=== PATIENT | female | born 1965 | race Caucasian/White ===

== ENCOUNTER 2016-11-27 05:25 | Day surgery (SDC) | payer OTHER ==
[~2016-11-27] VITALS: Ht 167.6 cm; Wt 122.3 kg
[2016-11-27] MEDS ORDERED: OMEPRAZOLE20 M1 PO (06:18)
[2016-11-27] MEDS ORDERED: PRINIVIL20 MG PO (06:18)
[2016-11-27] MEDS ORDERED: BAYER CHEWABLE81 MG PO (06:19)
[2016-11-27] MEDS ORDERED: PLAVIX75 MG PO (06:19)
[2016-11-27] MEDS ORDERED: CO Q-10100 MG PO (06:20)
[2016-11-27] MEDS ORDERED: FISH OIL 1,0001 CA1 PO (06:20)
[2016-11-27] MEDS ORDERED: COREG6.25 MG (06:21)
[2016-11-27] MEDS ORDERED: GLUCOPHAGE500 MG PO (06:21)
[2016-11-27] MEDS ORDERED: ALDACTONE25 MG PO (06:22)
[2016-11-27] MEDS ORDERED: LIPITOR20 MG PO (06:23)
[2016-11-27] MEDS ORDERED: VITAMIN D5000 UNIT PO (06:24)
[2016-11-27] MEDS ORDERED: CINNAMON500 MG PO (06:24)
[2016-11-27 06:37] VITALS: BP 146/91; Ht 167.6 cm; Wt 122.3 kg
[2016-11-27 06:47] LABS: BASOPHILS 0.1 % (0.0-2.0); EOSINOPHILS 2.7 % (0-7); HEMATOCRIT 37.9 % (36.0-48.0); HEMOGLOBIN 12.9 g/dL (12-16); IMMATURE GRANULOCYTES 0.3 % (0-5); LYMPHOCYTES 30.2 % (15-50); MCH 30.7 pg (26.0-34.0); MCV 90.2 fL (80.0-100.0); MEAN PLATELET VOLUME 10.4 fL (7.4-10.4); NEUTROPHILS 60.7 % (40-80); PLATELET COUNT 239 10x3/uL (130-400); RDW 12.9 % (11.5-14.5); WBC 9.4 10x3/uL (4.8-10.8)
[2016-11-27 07:02] LABS: ANION GAP 13.2 mmol/L (8-16); CALCIUM 9.1 mg/dL (8.5-10.1); CARBON DIOXIDE 25.7 mmol/L (21.0-32.0); POTASSIUM - SERUM 3.9 mmol/L (3.5-5.1)
--- NOTE | 2016-12-05 12:04 | OP ---
PATIENT NAME: DAISY MARTIN MEDICAL RECORD: [id number] :65 LOCATION:D.OPS ADMISSION DATE: SURGEON: MASOOD CARIAS DO DATE OF OPERATION: 11/27/2016 PROCEDURE: EGD with biopsies. ENDOSCOPIST: Masood Carias DO. SCOPE: Olympus video gastroscope. MEDICATIONS: Propofol 210 mg and lidocaine 100 mg per anesthesia. INDICATIONS FOR PROCEDURE: Epigastric abdominal pain, nausea and vomiting, abnormal weight loss and diarrhea, which is currently resolved. FINDINGS: Informed consent was given. The patient was made comfortable with the above medications. After reaching an adequate level of sedation by slow IV push, the patient was placed in the left side. The endoscope was then advanced under direct visualization through the mouth to the second portion of the duodenum. The esophageal mucosa appeared normal throughout its entirety. The GE junction showed ____ Z line without breaks in the mucosa. The scope was advanced into the stomach and retroflexed to view the cardia. There was no evidence of a hiatal hernia. The fundus revealed normal mucosa. Scope was advanced through the body of the stomach down to the antrum where there was some streaky erythema in the antrum and prepyloric region consistent with possible gastritis. Random biopsies were taken and sent for histology. There were a few benign fundic gland polyps noted in the body and fundus of the stomach. Scope was advanced down into the bulb and second portion of the duodenum where the mucosa appeared normal. Scope was withdrawn from the patient. The patient tolerated the procedure well and there were no complications. ESTIMATED BLOOD LOSS: Minimal. IMPRESSION: 1. Benign fundic gland gastric polyps. 2. Possible gastritis in the antrum and prepyloric region. Biopsies taken with cold forceps. PLAN AND RECOMMENDATIONS: 1. Continue current medications. 2. Continue current diet. 3. 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 We can follow up after these procedures are performed to see where her symptoms are at. If she is continuing to have nausea and abdominal pain, I would consider a gastric emptying study regarding her history of diabetes and her symptoms. TRANSINT:[id number] Voice Confirmation ID: [id number] DOCUMENT ID: [id number] OPERATIVE REPORT [id number] DAISY MARTIN MASOOD CARIAS DO at 1204 CC: [id number] DICTATION DATE: 11/27/16 0752 FINISH CLEANER: 11/27/16 1058 [facility] 11/27/16 [facility] [address] [place] [address]
== END 2016-11-27 08:50 | disposition home or self-care (01) ==
LOC: D.OPS 05:25
PROVIDERS: Anesthesiology
DX: K31.7 Polyp of stomach and duodenum (principal); R19.7 Diarrhea, unspecified; R63.4 Abnormal weight loss; E11.9 Type 2 diabetes mellitus without complications; D35.00 Benign neoplasm of unspecified adrenal gland

== ENCOUNTER → 2017-06-25 09:55 | Outpatient (CLI) | payer OTHER ==
[2016-11-27 06:37] VITALS: BMI 43.5
[~2017-06-25 09:55] MED LIST: ALDACTONE25 MG PO; BAYER CHEWABLE81 MG PO; CINNAMON500 MG PO; CO Q-10100 MG PO; COREG6.25 MG PO; FISH OIL 1,0001 CA1 PO; GLUCOPHAGE500 MG PO; LIPITOR20 MG PO; OMEPRAZOLE20 M1 PO; PLAVIX75 MG PO; PRINIVIL20 MG PO; VITAMIN D5000 UNIT PO
[2017-06-25 10:40] LABS: BILIRUBIN - DIRECT 0.09 mg/dL (0.00-0.30); BILIRUBIN - INDIRECT 0.31 mg/dL (0.00-1.00); BILIRUBIN - TOTAL 0.4 mg/dL (0.2-1.3); PROTEIN - SERUM 7.8 g/dL (6.4-8.2)
== END | disposition home or self-care (01) ==
LOC: D.LAB 09:55 → D.NM 10:30 → D.US 10:30
PROVIDERS: Internal Medicine Gastroenterology
DX: R10.13 Epigastric pain (principal); R11.2 Nausea with vomiting, unspecified; R74.8 Abnormal levels of other serum enzymes

== ENCOUNTER 2017-07-11 11:23 | Day surgery (SDC) | payer OTHER ==
[2017-07-11 12:12] LABS: HEMATOCRIT 38.6 % (36.0-48.0); HEMOGLOBIN 13.2 g/dL (12-16); MCH 30.9 pg (26.0-34.0); MCHC 34.2 g/dL (31.0-37.0); MCV 90.4 fL (80.0-100.0); RBC 4.27 10x6/uL (4.00-5.40); RDW 12.6 % (11.5-14.5); WBC 6.8 10x3/uL (4.8-10.8)
[2017-07-11 12:23] LABS: ANION GAP 14.9 mmol/L (8-16); CALCIUM 10.2 mg/dL (8.5-10.1); CARBON DIOXIDE 26.4 mmol/L (21.0-32.0); POTASSIUM - SERUM 4.3 mmol/L (3.5-5.1)
[2017-07-11 12:24] VITALS: BP 146/72; BMI 44.6
[2017-07-11 12:35] LABS: APTT 26.9 SECONDS (22.8-39.4); INR 1.05 (0.85-1.17); PROTIME 13.5 SECONDS (11.6-15.0)
--- NOTE | 2017-07-11 15:16 | NUR ---
1515 DISCHARGE INSTRUCTIONS COMPLETE. PT HAS NO QUESTIONS OR CONCERNS AT THIS TIME. ESCORTED OUT BY VOLUNTEER.
--- NOTE | 2017-07-26 07:24 | OP ---
PATIENT NAME: DAISY MARTIN MEDICAL RECORD: [id number] :65 LOCATION:D.OPS ADMISSION DATE: SURGEON: MASOOD CARIAS DO DATE OF OPERATION: 07/11/2017 PROCEDURE: Colonoscopy with polypectomy and random biopsies. INDICATION FOR PROCEDURE: Family history positive for colon cancer in her brother. SCOPE: Olympus video pediatric colonoscope. MEDICATIONS: Propofol 375mg IV per anesthesia. WITHDRAWAL TIME: 10 minutes. ESTIMATED BLOOD LOSS: Minimal. COMPLICATIONS: None. FINDINGS: Informed consent was given. The patient was made comfortable with the above medication. After reaching an adequate level of sedation by slow IV push, the patient was placed on her left side. A digital rectal examination was performed and revealed external hemorrhoids without bleeding. The endoscope was then advanced under direct visualization through the rectum to the terminal ileum. The endoscope was slowly withdrawn and mucosa was carefully examined. The prep quality was excellent. Retroflexion was performed in the rectum. There were 2 polyps visualized on today's examination. They were both located in the rectum. One was a benign appearing sessile polyp measuring approximately 6 mm in diameter. It was removed using hot snare in 1 piece and completely retrieved. The second polyp was a smaller polyp which was flat and appeared more consistent with a serrated adenomatous polyp. It measured approximately 3 to 4 mm in diameter. It was removed using hot snare in 1 piece and completely retrieved. Upon retroflexion, the rectal wall appeared normal. There were no diverticula or other abnormalities visualized on today examination. The endoscope was withdrawn from the patient. The patient tolerated the procedure well and there were no complications. IMPRESSION: 1. Two rectal polyps as described above, removed using hot snare. 2. External hemorrhoids without bleeding stigmata. 3. Random colon biopsies were taken to rule out microscopic colitis. PLAN AND RECOMMENDATIONS: 1. Discharge home when recovery parameters are met. 2. Follow up biopsy specimen results. 3. Anticipate a recall colonoscopy in 3 years, pending results of polyps removed. 4. High fiber diet. 5. Continue current medications. TRANSINT:[id number] Voice Confirmation ID: [id number] DOCUMENT ID: [id number] OPERATIVE REPORT [id number] DAISY MARTIN MASOOD CARIAS DO at 0724 CC: [id number] DICTATION DATE: 07/11/17 1431 SUPERVISOR SAWING AND ASSEMBLY: 07/11/17 1558 [facility] 07/11/17 [place] [address] [place] [address]
== END 2017-07-11 15:15 | disposition home or self-care (01) ==
LOC: D.OPS 11:23
PROVIDERS: Internal Medicine Gastroenterology
DX: K62.1 Rectal polyp (principal); K64.4 Residual hemorrhoidal skin tags; Z80.0 Family history of malignant neoplasm of digestive organs; Z01.812 Encounter for preprocedural laboratory examination

== ENCOUNTER → 2017-08-14 12:45 | Outpatient (CLI) | payer OTHER ==
[2017-08-14 14:05] LABS: BASOPHILS 0.1 % (0-2); EOSINOPHILS 3.2 % (0-7); HEMATOCRIT 36.5 % (36.0-48.0); HEMOGLOBIN 12.2 g/dL (12-16); IMMATURE GRANULOCYTES 0.4 % (0-5); LYMPHOCYTES 34.1 % (15-50); MCH 30.3 pg (26.0-34.0); MCHC 33.4 g/dL (31.0-37.0); MCV 90.6 fL (80.0-100.0); MEAN PLATELET VOLUME 10.9 fL (7.4-10.4); NEUTROPHILS 57.2 % (40-80); PLATELET COUNT 230 10x3/uL (130-400); RBC 4.03 10x6/uL (4.00-5.40); RDW 12.1 % (11.5-14.5); WBC 7.2 10x3/uL (4.8-10.8)
[2017-08-14 14:21] LABS: % SATURATION 23 % (15-55); IRON 77 ug/dl (35-150); TOTAL IRON BIND CAPACITY 326 ug/dl (260-445); UNSAT IRON BIND CAPACITY 249 ug/dl (150-375)
[2017-08-14 14:30] LABS: APTT 28.9 SECONDS (22.8-39.4); INR 1.03 (0.85-1.17); PROTIME 13.1 SECONDS (11.6-15.0)
[2017-08-14 14:33] LABS: ALBUMIN 3.9 g/dL (3.4-5.0); BILIRUBIN - DIRECT 0.1 mg/dL (0.00-0.30); BILIRUBIN - INDIRECT 0.26 mg/dL (0.00-1.00); BILIRUBIN - TOTAL 0.36 mg/dL (0.2-1.3); CALCIUM 9.7 mg/dL (8.5-10.1); CARBON DIOXIDE 25.1 mmol/L (21.0-32.0); POTASSIUM - SERUM 5.1 mmol/L (3.5-5.1); PROTEIN - SERUM 7.7 g/dL (6.4-8.2)
[2017-08-15 09:16] LABS: FOLATE (FOLIC ACID) - SERUM 13.7 ng/mL (>3.0); HAPTOGLOBIN 260 mg/dL (34-200)
[2017-08-15 10:18] LABS: ALPHA FETOPROTEIN -(TUMOR MRK) 1.3 ng/mL (0.0-8.3); ANA REFLEX - DIRECT Negative (Negative)
[2017-08-16 14:22] LABS: MITOCHONDRIAL ANTIBODY 10.5 Units (0.0-20.0); SMOOTH MUSCLE ABS (ACTIN) 9 Units (0-19)
== END | disposition home or self-care (01) ==
LOC: D.LAB 12:45
PROVIDERS: Internal Medicine Gastroenterology
DX: K76.0 Fatty (change of) liver, not elsewhere classified (principal); R74.8 Abnormal levels of other serum enzymes

== ENCOUNTER 2018-01-30 10:32 | Day surgery (SDC) | payer OTHER ==
[~2018-01-30] VITALS: Ht 167.6 cm; Wt 122.7 kg
--- NOTE | ~2018-01-30 | OP ---
PATIENT NAME: DAISY MARTIN MEDICAL RECORD: [id number] :65 LOCATION:DJOSE ADMISSION DATE: SURGEON: MASOOD CARIAS DO DATE OF OPERATION: 01/30/2018 PROCEDURE: EGD with biopsies. INDICATIONS FOR PROCEDURE: Epigastric pain, nausea and vomiting. SCOPE: Olympus video gastroscope. MEDICATIONS: Propofol 100 mg IV per anesthesia. ESTIMATED BLOOD LOSS: Minimal. COMPLICATIONS: None. FINDINGS: Informed consent was given. The patient was made comfortable with the above medication. After reaching an adequate level of sedation by slow IV push, the patient was placed on her left side. The endoscope was advanced under direct visualization through the mouth to the second portion of the duodenum. The upper, middle, and lower thirds of the esophagus appeared normal. Random cold forceps biopsies were taken in the mid esophagus to rule out eosinophilic esophagitis based on her complaints of dysphagia. At the GE junction, there was mild evidence of LA class A reflux-induced esophagitis. The endoscope was advanced beyond the GE junction into the stomach and retroflexed to view the cardia, which appeared normal. Within the stomach, there were patchy areas of erythema and granularity and possible very superficial ulcerations present. Findings are consistent with mild gastritis. Random biopsies were taken to submit for histology and to rule out the presence of H. pylori. The endoscope was advanced beyond the pylorus into the duodenum where the entire examined duodenum appeared normal. Cold forceps biopsies were taken from the second portion of the duodenum as well as the bulb to submit for histopathology. The endoscope was withdrawn from the patient. The patient tolerated the procedure well and there were no complications. IMPRESSION: 1. LA class A reflux-induced esophagitis. 2. Gastritis. PLAN AND RECOMMENDATIONS: 1. Discharge home when recovery parameters are met. 2. Follow up biopsy specimen results. 3. Increase omeprazole to 40 mg every a.m. times 30 days and then reduce back to 40 mg daily. 4. Recommend a trial of Reglan 5 mg p.o. a.c. and h.s. The patient has declined this in the past due to possible side effects of tardive dyskinesia, but she has had a gastric emptying scan in the past, which suggests mild delayed gastric emptying. Her symptoms are consistent with gastroparesis and this medication could be beneficial for her. 5. Continue gastroparesis diet of small more frequent meals, which are low in fiber and fatty substances. TRANSINT:[id number] Voice Confirmation ID: [id number] DOCUMENT ID: [id number] OPERATIVE REPORT [id number] DAISY MARTIN NATHAN A DO at 1558 CC: [id number] DICTATION DATE: 01/30/18 1243 EMAIL MARKETING COORDINATOR: 01/30/[address] [facility] 01/30/18 [place] [id number] [place] [address]
[2018-01-30 11:27] LABS: BASOPHILS 0.3 % (0-2); EOSINOPHILS 2.7 % (0-7); HEMATOCRIT 33.5 % (36.0-48.0); HEMOGLOBIN 11.5 g/dL (12-16); IMMATURE GRANULOCYTES 0.4 % (0-5); LYMPHOCYTES 31.5 % (15-50); MCH 30.9 pg (26.0-34.0); MCHC 34.3 g/dL (31.0-37.0); MCV 90.1 fL (80.0-100.0); MEAN PLATELET VOLUME 10.1 fL (7.4-10.4); MONOCYTES 7.9 % (2-11); NEUTROPHILS 57.2 % (40-80); PLATELET COUNT 276 10x3/uL (130-400); RBC 3.72 10x6/uL (4.00-5.40); RDW 12.9 % (11.5-14.5); WBC 7.5 10x3/uL (4.8-10.8)
[2018-01-30 11:32] LABS: ANION GAP 16.1 mmol/L (8-16); CALCIUM 9.6 mg/dL (8.5-10.1); CARBON DIOXIDE 23.9 mmol/L (21.0-32.0); CREATININE - SERUM 1.5 mg/dL (0.6-1.3)
[2018-01-30 11:44] VITALS: BP 136/69; Ht 167.6 cm; Wt 122.7 kg
== END 2018-01-30 13:30 | disposition home or self-care (01) ==
LOC: D.OPS 10:32
PROVIDERS: Anesthesiology
DX: K21.0 Gastro-esophageal reflux disease with esophagitis (principal); K29.50 Unspecified chronic gastritis without bleeding; Z01.812 Encounter for preprocedural laboratory examination

== ENCOUNTER → 2018-03-01 17:50 | Outpatient (CLI) | payer OTHER ==
[2018-01-30 11:44] VITALS: BMI 43.6
== END | disposition home or self-care (01) ==
LOC: D.LABREF 17:50
DX: J01.00 Acute maxillary sinusitis, unspecified (principal)

== ENCOUNTER 2018-08-05 06:56 | Day surgery (SDC) | payer OTHER ==
[~2018-08-05] VITALS: Ht 165.1 cm; Wt 115.7 kg
--- NOTE | ~2018-08-05 | HP ---
PATIENT: ANTOINETTE MARTIN MEDICAL RECORD: [id number] ACCOUNT: [id number] LOCATION:MARÍA : 65 ADMISSION DATE: 08/05/18 PCP: AMARILIS ARREOLA HISTORY AND PHYSICAL EXAMINATION HISTORY: Antoinette is 53. She has had chronic problems with sinusitis. She has been admitted for right middle meatal antrostomy, ethmoidectomy, and turbinate reduction. PAST MEDICAL HISTORY: Includes diabetes, hypertension, reactive airway disease, and liver disease. PAST SURGICAL HISTORY: Includes hysterectomy, hernia repair, and renal tumor. CURRENT MEDICATIONS: Include carvedilol, metformin, Reglan, biotin, glimepiride, lisinopril, Prilosec, spironolactone, Plavix has been held, aspirin has been held, and Singulair. ALLERGIES: VICTOZA AND BYDUREON. PHYSICAL EXAMINATION: GENERAL: She is healthy appearing. FACE: Normal and symmetric. No lesions. EYES: Sclerae and conjunctivae are normal. EARS: Canals and TMs are normal. NOSE: Purulent drainage from right middle meatus. Large inferior turbinates. No masses or polyps. ORAL CAVITY AND OROPHARYNX: Palate is normal. No trismus. She has a bad right maxillary molar. NECK: No masses. CHEST: Clear. CARDIOVASCULAR: Regular rate and rhythm. No murmur. EXTREMITIES: Normal. IMPRESSION: Chronic right-sided sinusitis, I think due to dental infection. PLAN: Right middle meatal antrostomy, right anterior ethmoidectomy, bilateral inferior turbinate reduction, possible dental extraction. TRANSINT:[id number] Voice Confirmation ID: [id number] DOCUMENT ID: [id number] BETI LAINEZ MD at 1817 CC: [id number] DICTATION DATE: 07/31/18 1339 DEER FARMER: 07/31/18 1438 [facility] 08/05/18 [place] [id number]
--- NOTE | ~2018-08-05 | OP ---
PATIENT NAME: DAISY MARTIN MEDICAL RECORD: [id number] :65 LOCATION:MARÍA ADMISSION DATE: SURGEON: BETI KIM MD DATE OF OPERATION: 08/05/2018 PREOPERATIVE DIAGNOSES: Chronic right sinusitis, nasal obstruction, and turbinate hypertrophy. POSTOPERATIVE DIAGNOSES: Chronic right sinusitis, nasal obstruction, and turbinate hypertrophy. PROCEDURES: Right middle meatal antrostomy, right ethmoidectomy, right frontal sinusotomy, and bilateral inferior turbinate reduction. SURGEON: Beti Kim MD ANESTHESIA: General orotracheal. BLOOD LOSS: 15 cc. SPECIMENS: Cultures from right maxillary sinus and some tissue from right middle meatus. NASAL PACKING: None. COMPLICATIONS: None. DISPOSITION: Recovery, stable. DESCRIPTION OF PROCEDURE: She was brought to the operating room, placed in the supine position, sedated and intubated by anesthesia. She was positioned. Her nose was examined. She had been decongested with Afrin preoperatively. On the right side, the uncinate, middle turbinate, and inferior turbinate were injected with less than 1 cc of 1% lidocaine with 1:100,000 epinephrine. Two Afrin pledgets were placed in each side of the nose. She was positioned, prepped, and draped in the usual sterile fashion. Then, the pledgets were removed. The left side was addressed first. The inferior turbinate redundant inferior portion was taken down with a Gruenwald. Suction cautery was used to stop any bleeding. It was outfractured with a Milton elevator. The nose was examined carefully with a 0-degree scope. The middle meatus, middle turbinate, nasal vault, and nasopharynx were normal. She did have some septal deviation, but no masses or lesions were noted. On the right side, the pledgets were removed. The inferior turbinate was little bit large. The middle meatus had copious purulence. The sphenoid ostia, posterior nasal vault, and superior meatus were clear with no drainage. Gruenwald was used to take down the inferior redundant portion. The suction cautery was used to stop any bleeding. It was outfractured with a Milton elevator. The middle turbinate was medialized slightly. There was copious purulence. Cultures were obtained. There were granular changes to the ethmoid bulla. The uncinate was fractured anteriorly. Microdebrider was used to take down some of the redundant polypoid and inflamed granulation tissue. Some of this was taken down with a backbiter and a straight grabber and sent for pathology. Large curved olive tip suction was inserted into the maxillary sinus and a Guadalupe trap was used to capture at least a couple cc of purulence and that was sent as specimen as well. The ethmoid bulla was entered inferomedially with microdebrider and the ethmoid cavity was taken down starting anteriorly and OPERATIVE REPORT [id number] DAISY MARTIN working posteriorly. Several of the air cells were full of purulence. With that evacuated, then a curved small olive tip suction was inserted into the frontal sinus easily all the way up. Some purulence was suctioned and then it was irrigated repeatedly with a 30 cc syringe with saline. Ethmoid cavity was done the same, irrigated with a straight Bernal tip suction to better visualize everything in it. The more posterior ethmoid air cells that had been opened were clear with mainly anterior purulence and then maxillary sinus was again irrigated repeatedly with 30 cc syringe copiously. Once that was completed, a couple Afrin pledgets were placed in the right middle meatus. I waited for few minutes to reexamine the area and everything was nice, clean, and clear. The maxillary sinus was examined with a 30-degree scope and mucosa was just granular and red, but it completely opened with nice wide open ostia. Some mupirocin on a curved olive tip suction was placed in the maxillary sinus and then some foam was injected into the ethmoid cavity. It really was not bleeding, but because she had previously been on Afrin and Plavix, just wanted to be cautious about any bleeding. The nasopharynx was suctioned, it was clear. I then examined the oral cavity. She had a couple of molar and premolar with some fillings, but no obvious dental decay. No loose teeth. No obvious infection. There was probably a dental source. I was unable to really isolate for certain bad tooth, so did not do anything with the teeth. She was awakened, extubated, and transported to recovery in good condition. No complications. TRANSINT:[id number] Voice Confirmation ID: [id number] DOCUMENT ID: [id number] BETI KIM MD at 1817 CC: [id number] DICTATION DATE: 08/05/18 1303 LOG DATA TECHNICIAN: 08/05/18 1417 [facility] 08/05/18 [place] [id number] [place] [address]
[~2018-08-05 06:56] MED LIST changes: +PEPCID AC20 MG PO; +SINGULAIR10 MG PO; +ZOFRAN8 MG PO
[2018-08-05 07:15] LABS: HEMATOCRIT 40.3 % (36.0-48.0); HEMOGLOBIN 13.3 g/dL (12-16); MCH 29.3 pg (26.0-34.0); MCV 88.8 fL (80.0-100.0); MEAN PLATELET VOLUME 10.5 fL (7.4-10.4); RBC 4.54 10x6/uL (4.00-5.40); RDW 13.6 % (11.5-14.5); WBC 8.9 10x3/uL (4.8-10.8)
[2018-08-05 07:37] LABS: ANION GAP 15.6 mmol/L (8-16); CALCIUM 9.6 mg/dL (8.5-10.1); CARBON DIOXIDE 25.9 mmol/L (21.0-32.0); CREATININE - SERUM 1.5 mg/dL (0.6-1.3); POTASSIUM - SERUM 4.5 mmol/L (3.5-5.1)
[2018-08-05 07:40] VITALS: BP 122/77; Ht 165.1 cm; Wt 115.7 kg
[2018-08-05] MEDS ORDERED: JARDIANCE25 MG PO (07:40)
== END 2018-08-05 13:32 | disposition home or self-care (01) ==
LOC: D.OPS 06:56 → D.PAN 08:45 → D.OPS 10:30
PROVIDERS: Anesthesiology
DX: J32.9 Chronic sinusitis, unspecified (principal); J34.3 Hypertrophy of nasal turbinates; E11.9 Type 2 diabetes mellitus without complications; I10 Essential (primary) hypertension